=== PATIENT | female | born 1995 | race Caucasian/White ===

== ENCOUNTER 2019-03-30 11:20 | Emergency (ER) | payer MEDICAID ==
[~2019-03-30] VITALS: Ht 162.6 cm; Wt 68.2 kg
[2019-03-30 11:33] VITALS: BP 111/69; Ht 162.6 cm; Wt 68.2 kg
[2019-03-30] MEDS ORDERED: VALTREX1000 MG PO (11:57)
[2019-03-30 12:08] LABS: APPEARANCE CLEAR (CLEAR); BILIRUBIN NEGATIVE (NEGATIVE); COLOR YELLOW (YELLOW); GLUCOSE NEGATIVE (NEGATIVE); KETONE NEGATIVE (NEGATIVE); NITRITE NEGATIVE (NEGATIVE); PROTEIN NEGATIVE (NEGATIVE); UROBILINOGEN NORMAL (NORMAL)
== END 2019-03-30 12:25 | disposition home or self-care (01) ==
LOC: D.ER 11:20
PROVIDERS: Family Medicine
DX: B00.1 Herpesviral vesicular dermatitis (principal)

== ENCOUNTER 2019-05-22 10:16 | Emergency (ER) | payer MEDICAID ==
[~2019-05-22] VITALS: Ht 162.6 cm; Wt 68.2 kg
[~2019-05-22 10:16] MED LIST: AUGMENTIN 875-11 TAB PO; VALTREX1000 MG PO
[2019-05-22 10:18] VITALS: Ht 162.6 cm; Wt 68.2 kg
[2019-05-22] MEDS ORDERED: TAMIFLU75 MG PO (11:15)
[2019-05-22 12:02] VITALS: BP 130/73
== END 2019-05-22 12:05 | disposition home or self-care (01) ==
LOC: D.ER 10:16
DX: J10.1 Influenza due to other identified influenza virus with other respiratory manifestations (principal)

== ENCOUNTER 2019-06-27 22:13 | Emergency (ER) | payer MEDICAID ==
[~2019-06-27] VITALS: Ht 162.6 cm; Wt 68.2 kg
[~2019-06-27 22:13] MED LIST changes: +TAMIFLU75 MG PO
[2019-06-27 22:18] VITALS: Ht 162.6 cm; Wt 68.2 kg
[2019-06-27 23:16] VITALS: BP 122/74
== END 2019-06-27 23:16 | disposition home or self-care (01) ==
LOC: D.ER 22:13
DX: T19.2XXA Foreign body in vulva and vagina, initial encounter (principal); Z71.1 Person with feared health complaint in whom no diagnosis is made